=== PATIENT | female | born 1950 | race Caucasian/White ===

== ENCOUNTER 2016-09-10 22:06 | Emergency (ER) | payer MEDICARE ==
[~2016-09-10] VITALS: Ht 167.6 cm; Wt 114.3 kg
[2016-09-10 22:26] VITALS: BP 165/92
[2016-09-10 22:53] LABS: Basophils # (auto) 0 uL; Basophils % (auto) 0.3 % (0.0-2.0); Eosinophils # (auto) 0.3 uL; Eosinophils % (auto) 2.7 % (0.0-7.0); Hematocrit 43.6 % (36.0-46.0); Hemoglobin 14.3 g/dL (12.2-16.2); Lymphocytes # (auto) 2.2 uL; Lymphocytes % (auto) 19.8 % (10.0-50.0); Mean Corpuscular Hemoglobin 28.9 pg (28.0-32.0); Mean Corpuscular Hgb Conc. 32.7 g/dL (32.0-36.0); Mean Corpuscular Volume 88.3 fL (80.0-100.0); Mean Platelet Volume 7.8 fL (7.4-10.4); Monocytes # (auto) 0.6 uL; Monocytes % (auto) 5.8 % (0.0-12.0); Neutrophils # (auto) 7.8 uL; Neutrophils % (auto) 71.4 % (37.0-80.0); Platelet Count (auto) 360 10^3/uL (140-450); Red Cell Distribution Width 14.1 % (11.6-16.0)
[2016-09-10 23:02] LABS: Urine Bilirubin Negative (Negative); Urine Blood Negative /uL (Negative); Urine Color Yellow (Yellow); Urine Glucose Normal (Normal); Urine Ketone Negative (Negative); Urine Mucus FEW (None Seen); Urine Nitrite Negative (Negative); Urine RBC 1 /hpf (0 - 4); Urine Squamous Epithelial Cell FEW /hpf (<5); Urine Urobilinogen Normal (Negative); Urine pH 5.5 (5.0-8.0)
[2016-09-10 23:08] LABS: INR 0.98 (0.9-1.15); Partial Thromboplastin Time 26.1 sec (22.64-33.71); Prothrombin Time 10.6 sec (9.37-12.3)
[2016-09-10 23:18] LABS: Albumin 3.7 g/dL (3.4-5.0); BUN/Creatinine Ratio 23.4; Bilirubin, Total 0.3 mg/dL (0.2-1.0); Calcium 9.2 mg/dL (8.5-10.1); Potassium 4.2 mmol/L (3.5-5.1); Total Protein 7.5 g/dL (6.4-8.2)
== END 2016-09-11 05:21 | disposition left against medical advice (07) ==
LOC: ER 22:06
DX: R10.9 Unspecified abdominal pain (principal); Z53.21 Procedure and treatment not carried out due to patient leaving prior to being seen by health care provider
CPT/HCPCS: 36415; 74176; 76705; 80053; 81001; 82150; 83690; 85025; 85610; 85730; 93005

== ENCOUNTER → 2018-11-18 | Day surgery (SDC) | payer MEDICARE ==
[2018-11-14 10:33] LABS: Basophils # (auto) 0 uL; Basophils % (auto) 0.5 % (0.0-2.0); Eosinophils # (auto) 0.1 uL; Hematocrit 43.1 % (36.0-46.0); Hemoglobin 14.5 g/dL (12.2-16.2); Lymphocytes # (auto) 1.6 uL; Lymphocytes % (auto) 25.3 % (10.0-50.0); Mean Corpuscular Hemoglobin 30.2 pg (28.0-32.0); Mean Corpuscular Hgb Conc. 33.6 g/dL (32.0-36.0); Mean Corpuscular Volume 89.8 fL (80.0-100.0); Monocytes # (auto) 0.5 uL; Monocytes % (auto) 7.7 % (0.0-12.0); Neutrophils # (auto) 4.2 uL; Neutrophils % (auto) 64.5 % (37.0-80.0); Platelet Count (auto) 309 10^3/uL (140-450); Red Cell Distribution Width 14.3 % (11.8-14.3); White Blood Cell 6.5 10^3/uL (4.4-10.8)
[2018-11-14 10:54] LABS: Urine Bacteria NONE SEEN /hpf (None Seen); Urine Blood Negative /uL (Negative); Urine Mucus FEW (None Seen); Urine Specific Gravity 1.021 (1.001-1.035); Urine WBC 3 /hpf (0 - 5)
[2018-11-14 10:59] LABS: INR 0.95 (0.9-1.15); Partial Thromboplastin Time 26.3 sec (23.64-32.05)
[2018-11-14 11:01] LABS: Potassium 4.2 mmol/L (3.5-5.1)
[2018-11-14 11:12] LABS: Albumin 3.8 g/dL (3.4-5.0); BUN/Creatinine Ratio 26.8; Bilirubin, Total 0.6 mg/dL (0.2-1.0); Calcium 9.6 mg/dL (8.5-10.1); Total Protein 7.8 g/dL (6.4-8.2)
[~2018-11-18] VITALS: Ht 170.2 cm; Wt 108.9 kg
[~2018-11-18] MED LIST: AMLO10TA12 PO; ASPI81TA27 PO; CHLO25TA22 PO; LISI40TA PO; ceFAZolin 1GM/50ML 50 ML IV ONE
[2018-11-18 08:10] VITALS: BP 133/74
== END | disposition home or self-care (01) ==
LOC: SUR 08:00
PROVIDERS: ATTEND Orthopaedic Surgery
DX: M23.211 Derangement of anterior horn of medial meniscus due to old tear or injury, right knee (principal); M13.161 Monoarthritis, not elsewhere classified, right knee; Z53.9 Procedure and treatment not carried out, unspecified reason
CPT/HCPCS: 36415; 80053; 81001; 85025; 85610; 85730; 86850; 86900; 86901; J0690